=== PATIENT | female | born 1960 | race Caucasian/White ===

== ENCOUNTER 2019-05-19 09:33 | Emergency (ER) | payer SELFPAY ==
[~2019-05-19] VITALS: Ht 152.4 cm; Wt 56.7 kg
[2019-05-19 09:41] VITALS: BP 187/73
== END 2019-05-19 11:07 | disposition left against medical advice (07) ==
LOC: ER 09:33
DX: I10 Essential (primary) hypertension (principal); Z53.21 Procedure and treatment not carried out due to patient leaving prior to being seen by health care provider

== ENCOUNTER → 2023-01-28 | Emergency (ER) | payer SELFPAY ==
[~2023-01-28] VITALS: Ht 167.6 cm; Wt 63.6 kg
[2023-01-28 15:12] VITALS: BP 136/94
[2023-01-28 17:04] LABS: Basophils # (auto) 0 10 ^3/uL (0-0.2); Basophils % (auto) 0.8 % (0.0-2.0); Eosinophils # (auto) 0.1 10 ^3/uL (0-0.8); Eosinophils % (auto) 1.8 % (0.0-7.0); Hematocrit 44.1 % (36.0-46.0); Hemoglobin 14.6 g/dL (12.2-16.2); Lymphocytes # (auto) 1.1 10 ^3/uL (0.4-5.4); Lymphocytes % (auto) 17.6 % (10.0-50.0); Mean Corpuscular Hemoglobin 30.2 pg (28.0-32.0); Mean Corpuscular Hgb Conc. 33.2 g/dL (32.0-36.0); Mean Corpuscular Volume 91.1 fL (80.0-100.0); Monocytes # (auto) 0.5 10 ^3/uL (0-1.3); Neutrophils # (auto) 4.4 10 ^3/uL (1.6-8.6); Neutrophils % (auto) 71.8 % (37.0-80.0); Red Blood Cells 4.84 10^6/uL (4.0-5.20); Red Cell Distribution Width 13.3 % (11.8-14.3); White Blood Cell 6.1 10^3/uL (4.4-10.8)
[2023-01-28 17:22] LABS: Albumin 3.9 g/dL (3.4-5.0); Calcium 9.5 mg/dL (8.5-10.1); Potassium 3.9 mmol/L (3.5-5.1)
[2023-01-28 17:25] LABS: BUN/Creatinine Ratio 25.5 (10.0-20.0); Bilirubin, Total 0.2 mg/dL (0.2-1.0); Total Protein 7.4 g/dL (6.4-8.2)
== END | disposition left against medical advice (07) ==
LOC: EDUNIT# 15:08 → ER 15:08 → EDBD 15:08
DX: S09.93XA Unspecified injury of face, initial encounter (principal); F10.129 Alcohol abuse with intoxication, unspecified; Z53.21 Procedure and treatment not carried out due to patient leaving prior to being seen by health care provider; X58.XXXA Exposure to other specified factors, initial encounter; Y93.89 Activity, other specified; Y92.89 Other specified places as the place of occurrence of the external cause; Y99.8 Other external cause status
CPT/HCPCS: 36415; 80053; 80320; 85025

== ENCOUNTER 2023-12-11 03:08 | Emergency (ER) | payer OTHER ==
[~2023-12-11] VITALS: Ht 154.9 cm; Wt 53.2 kg
[2023-12-11 04:21] LABS: Urine Bacteria NONE SEEN /hpf (None Seen); Urine Blood 1+ /uL (Negative); Urine Clarity Clear (Clear); Urine Color Straw (Yellow); Urine Protein, UAD 1+ (Negative); Urine Specific Gravity 1.018 (1.001-1.035); Urine Urobilinogen Normal (Negative); Urine WBC 1 /hpf (0 - 5); Urine pH 5.5 (5.0-8.0)
[2023-12-11 04:34] LABS: Basophils # (auto) 0.1 10 ^3/uL (0-0.2); Basophils % (auto) 0.6 % (0.0-2.0); Eosinophils # (auto) 0.1 10 ^3/uL (0-0.8); Eosinophils % (auto) 1.2 % (0.0-7.0); Hematocrit 41.3 % (36.0-46.0); Hemoglobin 13.6 g/dL (12.2-16.2); Lymphocytes # (auto) 1.2 10 ^3/uL (0.4-5.4); Lymphocytes % (auto) 11.3 % (10.0-50.0); Mean Corpuscular Hemoglobin 30.6 pg (28.0-32.0); Mean Corpuscular Hgb Conc. 32.9 g/dL (32.0-36.0); Mean Corpuscular Volume 93.2 fL (80.0-100.0); Monocytes # (auto) 0.8 10 ^3/uL (0-1.3); Monocytes % (auto) 7.8 % (0.0-12.0); Neutrophils # (auto) 8.3 10 ^3/uL (1.6-8.6); Neutrophils % (auto) 79.1 % (37.0-80.0); Nucleated Red Blood Cells % 0.1 %; Red Blood Cells 4.43 10^6/uL (4.0-5.20); Red Cell Distribution Width 13.9 % (11.8-14.3); White Blood Cell 10.5 10^3/uL (4.4-10.8)
[2023-12-11 04:34] LABS: Amphetamine Screen, Urine Pos (NEGATIVE); Barbiturate Scree,Urine Neg (NEGATIVE); Benzodiazephine Screen, Urine Neg (NEGATIVE); Cannabinoid Screen, Urine Neg (NEGATIVE); Cocaine Screen, Urine Neg (NEGATIVE); Opiate Scree,Urine Neg (NEGATIVE); Phencyclidine Screen, Urine Neg (NEGATIVE)
[2023-12-11 04:49] LABS: Alanine Aminotransferase 55 U/L (7-40); Albumin 4.8 g/dL (3.2-4.8); Alkaline Phosphatase 110 U/L (46-116); Anion Gap 7 (5-15); Aspartate Aminotransferase 95 U/L (13-40); BUN/Creatinine Ratio 22.7 (10.0-20.0); Bilirubin, Total 0.3 mg/dL (0.2-1.0); Blood Alcohol 166.8 mg/dL (<10); Blood Urea Nitrogen 22 mg/dL (9-23); Calcium 9.6 mg/dL (8.5-10.1); Carbon Dioxide 26 mmol/L (20-30); Chloride 111 mmol/L (98-107); Glucose 94 mg/dL (74-106); Potassium 3.5 mmol/L (3.5-5.1); Sodium 144 mmol/L (136-145); Total Protein 7.4 g/dL (5.7-8.2)
[2023-12-11 04:50] VITALS: PULSE 84; RESP 21; O2SAT 100
[2023-12-11] MEDS: IOHEXOL 300 MG/ML 100ML BOTTLE IJ ONE (05:22)
[2023-12-11 07:30] VITALS: PULSE 89; RESP 12; O2SAT 96
[2023-12-11] MEDS: NEOMYCIN-BACITRACIN-POLYM UNITDOSE PKG TOP OINT TOP ONE (08:42)
[2023-12-11] MEDS: LIDOCAINE 1% (LOCAL ANESTH.) PF 5ml SDV ID ONE (08:42)
[2023-12-11 10:45] VITALS: BP 167/92; PULSE 85; RESP 19; TEMP 98.2; O2SAT 93
[2023-12-11] MEDS: HYDROcodone-ACET 10/325MG TAB PO ONE (10:59)
== END 2023-12-11 13:46 | disposition home or self-care (01) ==
LOC: ER 03:08 → EDBD 03:08 → ER 13:46
DX: S22.31XA Fracture of one rib, right side, initial encounter for closed fracture (principal); S61.011A Laceration without foreign body of right thumb without damage to nail, initial encounter; M54.2 Cervicalgia; M25.571 Pain in right ankle and joints of right foot; R51.9 Headache, unspecified; Z88.1 Allergy status to other antibiotic agents; Z79.899 Other long term (current) drug therapy; V49.9XXA Car occupant (driver) (passenger) injured in unspecified traffic accident, initial encounter; Y93.89 Activity, other specified; Y92.89 Other specified places as the place of occurrence of the external cause; Y99.8 Other external cause status
CPT/HCPCS: 12002; 29515; 36415; 70450; 71250; 71260; 72125; 73060; 73100; 73120; 73130; 73590; 73620; 74177; 80053; 80307; 80320; 81001; 84484; 85025; 93005; 99285; Q9967; 29125

== ENCOUNTER 2024-09-30 21:15 | Emergency (ER) | payer OTHER ==
[~2024-09-30] VITALS: Ht 152.4 cm; Wt 57.7 kg
[2024-09-30] MEDS: cloNIDine HCL 0.1 MG TAB PO ONE (22:02)
[2024-09-30 22:16] VITALS: BP 251/143; PULSE 86; RESP 18; O2SAT 97
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
--- NOTE | 2024-09-30 22:44 | DVH ---
CLINICAL HISTORY: pain s/p fall TECHNIQUE: 3 views of the right wrist were obtained. WID: COMPARISON: None FINDINGS: Slight bony demineralization. Alignment is maintained. Mild 1st CMC joint osteoarthritis. There is no acute fracture. Overlying soft tissues are intact. IMPRESSION: 1. No acute fracture. 2. Slight bony demineralization. 3. Mild 1st CMC joint osteoarthritis.
[2024-09-30] MEDS ORDERED: IBUP-1455 PO (23:18)
--- NOTE | 2024-10-08 14:00 | ECG ---
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
== END 2024-10-01 02:21 | disposition home or self-care (01) ==
LOC: ER 21:15
DX: S60.211A Contusion of right wrist, initial encounter (principal); I10 Essential (primary) hypertension; R51.9 Headache, unspecified; R94.31 Abnormal electrocardiogram [ECG] [EKG]; Z88.1 Allergy status to other antibiotic agents; Z90.49 Acquired absence of other specified parts of digestive tract; V19.9XXA Pedal cyclist (driver) (passenger) injured in unspecified traffic accident, initial encounter; Y93.89 Activity, other specified; Y92.89 Other specified places as the place of occurrence of the external cause; Y99.8 Other external cause status
CPT/HCPCS: 73100; 93005